=== PATIENT | female | born 1970 | race Caucasian/White ===

== ENCOUNTER 2016-12-29 08:32 | Day surgery (SDC) | payer BC ==
--- NOTE | ~2016-12-29 | EGD ---
EGD REPORT [facility] [address] [address] NAME: SAMSON HARRIS : [birth year] STATUS : REG [facility] PAT#: [id number] AGE: 46 ADM/REG DATE : 12/29/16 MR#: [id number] REPORT SERV DATE: 12/29/16 DICTATED BY: DATE: REPORT STATUS : Draft TRANSCRIBED BY: [employer] DATE: 12/29/16 [facility] Patient Name: Samson Harris Date of : 1970 Attending MD: VALERIE WELLINGTON MD Procedure Date No Time: 12/29/2016 Procedure: Upper GI endoscopy Indications: Dyspepsia, Esophageal reflux symptoms that recur despite appropriate therapy Referring MD: GABBY PADILLA Medicines: Monitored Anesthesia Care Complications: No immediate complications. Procedure: Pre-Anesthesia Assessment: - ASA Grade Assessment: II - A patient with mild systemic disease. After obtaining informed consent, the endoscope was passed under direct vision. Throughout the procedure, the patient's blood pressure, pulse, and oxygen saturations were monitored continuously. The GIF [id number] was introduced through the mouth, and advanced to the third part of duodenum. The upper GI endoscopy was accomplished without difficulty. The patient tolerated the procedure well. Findings: The examined esophagus was moderately tortuous. The Z-line was irregular and was found 35 cm from the incisors. Biopsies were taken with a cold forceps for histology. A diverticulum with a shallow, moderate opening was found at the gastroesophageal junction. The GEJ was eccentrically located to this. A 2 cm hiatus hernia was present. A prior Korey fundoplication was found at the gastroesophageal junction. This was characterized by appears slipped though otherwise intact. Diffuse atrophic mucosa was found in the gastric body. Biopsies were taken with a cold forceps for histology. A few diminutive sessile polyps were found on the greater curvature of the stomach. Biopsies were taken with a cold forceps for histology. No other significant abnormalities were identified in a careful examination of the stomach. There is no endoscopic evidence of ulceration, varices, papules or mass in the entire examined stomach. The examined duodenum was normal. Biopsies were taken with a cold forceps for histology. There is no endoscopic evidence of mucosal abnormalities, stenosis or EGD REPORT [address] [place]. [address] NAME: TUANTSAMSON : 66 STATUS : REG [facility] PAT#: [id number] AGE: 46 ADM/REG DATE : 12/29/16 MR#: [id number] REPORT SERV DATE: 12/29/16 DICTATED BY: DATE: REPORT STATUS : Draft TRANSCRIBED BY: [employer] DATE: 12/29/16 ulceration in the entire examined duodenum. The cardia and gastric fundus were normal on retroflexion. Impression: - Tortuous esophagus. - Z-line irregular, 35 cm from the incisors. Biopsied. 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 - Hiatus hernia. - A Korey fundoplication was found. - Gastric mucosal atrophy. Biopsied. - A few gastric polyps. Biopsied. - Normal examined duodenum. Biopsied. Recommendation: - Patient has a contact number available for emergencies. The signs and symptoms of potential delayed complications were discussed with the patient. Return to normal activities tomorrow. Written discharge instructions were provided to the patient. - Return to previous diet. - Discharge patient to home. - Continue present medications. - Await pathology results. 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 All rights reserved. The codes documented in this report are preliminary and upon net developer software engineer c review may be revised to meet current compliance requirements. VALERIE WELLINGTON MD EGD REPORT [facility] [address] [address] NAME: TUANTSAMSON : [birth year] STATUS : REG [facility] PAT#: [id number] AGE: 46 ADM/REG DATE : 12/29/16 MR#: [id number] REPORT SERV DATE: 12/29/16 DICTATED BY: DATE: REPORT STATUS : Draft TRANSCRIBED BY: [employer] DATE: 12/29/16 12/29/2016 11:40 AM This report has been signed electronically. Number of Addenda: 0 Note Initiated On: 12/29/2016 9:24 AM Scope Withdrawal Time 0 hours 0 minutes [address] [place] [address] [place] [id number]
[~2016-12-29 08:32] MED LIST: ATEN50 PO; BIOTIN PO; ESTROGEN CREME T; FLOVENT44 INH; NEUR600 PO; NEXIUM40 PO; PEPCID40 MG PO; PROAIR HFA INH; PROMETRIUM200 MG PO; SINGULAIR1 PO; TESTOSTERONE 2 MG T; VIMPAT150 MG PO; VITAMIN B-122500 MCG SL
[2017-06-30] MEDS ORDERED: DSS PO (17:24)
[2017-06-30] MEDS ORDERED: VITAMIN D1000 UNI1 PO (17:25)
[2017-06-30] MEDS ORDERED: PR25 PO (17:26)
[2017-06-30] MEDS ORDERED: FROVA2.5 MG PO (17:27)
[2017-06-30] MEDS ORDERED: NORCO1 TA1 PO (17:27)
[2017-06-30] MEDS ORDERED: MOBIC15 MG PO (17:28)
[2017-06-30] MEDS ORDERED: TRIAMCINOLONE T (17:29)
== END 2016-12-29 23:59 | disposition home or self-care (01) ==
LOC: DMU 08:32
PROVIDERS: Internal Medicine Gastroenterology
PROC: 0DB78ZX Excision of Stomach, Pylorus, Via Natural or Artificial Opening Endoscopic, Diagnostic (ICD-10-PCS; 2016-12-29)
PROC: 0DB68ZX Excision of Stomach, Via Natural or Artificial Opening Endoscopic, Diagnostic (ICD-10-PCS; 2016-12-29)
PROC: 0DB98ZX Excision of Duodenum, Via Natural or Artificial Opening Endoscopic, Diagnostic (ICD-10-PCS; principal; 2016-12-29 11:00)
PROC: 0DB58ZX Excision of Esophagus, Via Natural or Artificial Opening Endoscopic, Diagnostic (ICD-10-PCS; 2016-12-29 11:00)
DX: K29.50 Unspecified chronic gastritis without bleeding (principal); K31.7 Polyp of stomach and duodenum; K22.8 Other specified diseases of esophagus; K44.9 Diaphragmatic hernia without obstruction or gangrene; K31.89 Other diseases of stomach and duodenum; K21.9 Gastro-esophageal reflux disease without esophagitis; J44.9 Chronic obstructive pulmonary disease, unspecified; J45.909 Unspecified asthma, uncomplicated; Z98.0 Intestinal bypass and anastomosis status; Z88.1 Allergy status to other antibiotic agents; Z88.8 Allergy status to other drugs, medicaments and biological substances; Z98.890 Other specified postprocedural states
CPT/HCPCS: 84703; 88305; 88342; 91035